=== PATIENT | male | born 1975 | race Caucasian/White ===

== ENCOUNTER 2019-04-04 05:52 | Outpatient (CLI) | payer BC ==
[~2019-04-04] VITALS: Ht 182.9 cm; Wt 87.7 kg
[~2019-04-04 05:52] MED LIST: CYCL10TA9 PO; IBP800T PO; MULT-608 PO
[2019-04-04] MEDS ORDERED: LORA10TA76 PO (10:41)
[2019-04-04] MEDS ORDERED: MULT1TAB69 PO (10:41)
[2019-04-04] MEDS ORDERED: ENAL10TA PO (10:41)
[2019-04-04] MEDS ORDERED: PRAV80TA2 PO (10:41)
--- NOTE | 2019-04-05 08:57 | HISTORY AND PHYSICAL ---
DATE OF SERVICE: 04/04/2019 COLONOSCOPY HISTORY AND PHYSICAL HISTORY: The patient is a 43-year-old white male with a strong family history for colon cancer. His dad underwent a resection at the age of 56 and underwent resection for colon cancer at the age of 56. He is not aware of any other family history for colon cancer. He has had some occasional bright red blood per rectum. Minimal volume that attributed to hemorrhoids, but it has been sometime since his last episode. He reports he is playing with his weight. He has not been exercising as much since his rowing machine broke and then slowly attributes a 7-pound weight gain. He has had no melena or recent bright red blood per rectum. Denies bowel habit change. He has had no abdominal distention and denies heartburn or dysphagia. PHYSICAL EXAMINATION: GENERAL: Reveals a white male, somewhat anxious, but in no acute distress. VITAL SIGNS: Weight 193.4 pounds, blood pressure 120/90. CHEST: Clear. CARDIOVASCULAR: Regular rate and rhythm without murmur, S3 or S4. ABDOMEN: Soft, supple without mass, organomegaly or tenderness. EXTREMITIES: Reveal no cyanosis, clubbing or edema. SKIN: Evaluation revealed no suspicious nevi. ASSESSMENT AND PLAN: 1. Hypertension. Blood pressure mildly elevated. We will see how he does under sedation during colonoscopy as it is borderline and did not any changes except for recommendations for getting and the rowing machine is what he prefers and getting back to a regular exercise 30 minutes 5 days a week is being admitted and treatment recommendation. 2. Hyperlipidemia has been stable. No history of vascular disease. 3. Family history of colon cancer. The procedure was discussed prep instructions were given and his schedule and call back with a day for the procedure in the next month. He received a flu shot again at work per his report. Job ID: [id number] DocumentID: [id number] Dictated Date: 03/27/2019 17:07:37 Breeder Service Technician Date: 03/27/2019 17:44:29 Dictated By: BOBBY SAUCEDA MD
== END 2019-04-04 10:42 | disposition home or self-care (01) ==
LOC: PREOP 05:52
PROVIDERS: ATTEND Internal Medicine
DX: Z01.818 Encounter for other preprocedural examination (principal)

== ENCOUNTER 2019-04-05 09:27 | Day surgery (SDC) | payer BC, OTHER ==
[2019-04-05] VITALS (13 sets, daily range): BP systolic 121–146; BP diastolic 77–97
[~2019-04-05] VITALS: Ht 182.9 cm; Wt 87.7 kg
--- NOTE | 2019-04-05 08:57 | HISTORY AND PHYSICAL ---
DATE OF SERVICE: 04/04/2019 COLONOSCOPY HISTORY AND PHYSICAL HISTORY: The patient is a 43-year-old white male with a strong family history for colon cancer. His dad underwent a resection at the age of 56 and underwent resection for colon cancer at the age of 56. He is not aware of any other family history for colon cancer. He has had some occasional bright red blood per rectum. Minimal volume that attributed to hemorrhoids, but it has been sometime since his last episode. He reports he is playing with his weight. He has not been exercising as much since his rowing machine broke and then slowly attributes a 7-pound weight gain. He has had no melena or recent bright red blood per rectum. Denies bowel habit change. He has had no abdominal distention and denies heartburn or dysphagia. PHYSICAL EXAMINATION: GENERAL: Reveals a white male, somewhat anxious, but in no acute distress. VITAL SIGNS: Weight 193.4 pounds, blood pressure 120/90. CHEST: Clear. CARDIOVASCULAR: Regular rate and rhythm without murmur, S3 or S4. ABDOMEN: Soft, supple without mass, organomegaly or tenderness. EXTREMITIES: Reveal no cyanosis, clubbing or edema. SKIN: Evaluation revealed no suspicious nevi. ASSESSMENT AND PLAN: 1. Hypertension. Blood pressure mildly elevated. We will see how he does under sedation during colonoscopy as it is borderline and did not any changes except for recommendations for getting and the rowing machine is what he prefers and getting back to a regular exercise 30 minutes 5 days a week is being admitted and treatment recommendation. 2. Hyperlipidemia has been stable. No history of vascular disease. 3. Family history of colon cancer. The procedure was discussed prep instructions were given and his schedule and call back with a day for the procedure in the next month. He received a flu shot again at work per his report. Job ID: [id number] DocumentID: [id number] Dictated Date: 03/27/2019 17:07:37 Barrel Reamer Date: 03/27/2019 17:44:29 Dictated By: BOBBY SAUCEDA MD
[~2019-04-05 09:27] MED LIST changes: +ENAL10TA PO; +LORA10TA76 PO; +MULT1TAB69 PO; +PRAV80TA2 PO
[2019-04-05] MEDS ORDERED: D5 LR IV SOLUTION 1,000 ML IV STA (09:34)
[2019-04-05] MEDS ORDERED: D5 LR IV SOLUTION 1,000 ML IV ONE (09:39)
--- NOTE | 2019-04-05 09:40 | Pre-Op Note & Conscious Sedat ---
Pre-Operative Progress Note H&P Reviewed The H&P was reviewed, patient examined and no changes noted. Date H&P Reviewed: Apr 05, 2019 Time H&P Reviewed: 09:39 Conscious Sedation Pre-Proced ASA Score 2 For ASA 3 and 4: Consider anesthesia and medical clearance. Also, for patients with a history of failed moderate sedation consider anesthesia. Airway Lungs Heart ASA score ASA 1: a normal healthy patient ASA 2: a patient with a mild systemic disease (mid diabetes, controlled hypertension, obesity ASA 3: a patient with a severe systemic disease that limits activity (angina, COPD, prior Myocardial infarction) ASA 4: a patient with an incapacitating disease that is a constant threat to life (CHF, renal failure) ASA 5: a moribund patient not expected to survive 24 hrs. (ruptured aneurysm) ASA 6: a declared brain- patient whose organs are being harvested. For emergent operations, add the letter E after the classification Mallampati Classification Grade 2 Sedation Plan Analgesia, Amnesia, Plan communicated to team members, Discussed options with patient/fam, Discussed risks with patient/fam The patient is an appropriate candidate to undergo the planned procedure, sedation, and anesthesia. The patient immediately re-assessed prior to indication. BOBBY SAUCEDA MD Apr 05, 2019 09:40 POS
[2019-04-05] MEDS ORDERED: LIDOCAINE JELLY 2% 6 ML SYRINGE MM PRN (09:45)
[2019-04-05] MEDS ORDERED: fentaNYL INJECTION 100 MCG/2 ML AMP IVP ONE (09:45)
[2019-04-05] MEDS ORDERED: LIDOCAINE JELLY 2% 6 ML SYRINGE ONE (10:01)
[2019-04-05] MEDS ORDERED: MIDAZOLAM 5 MG/5 ML (VERSED) VIAL ONE (10:02)
[2019-04-05] MEDS ORDERED: fentaNYL INJECTION 100 MCG/2 ML AMP ONE ×2 (10:02)
[2019-04-05] MEDS: MIDAZOLAM 5 MG/5 ML (VERSED) VIAL IV PRN ×3 (10:19→10:31)
--- NOTE | 2019-04-05 14:53 | OPERATIVE REPORT ---
DATE OF SERVICE: 04/05/2019 COLONOSCOPY SUMMARY PRIMARY CARE PHYSICIAN: Bobby Sauceda MD INDICATION FOR THE PROCEDURE: Screening colonoscopy. Family history of colon cancer. DESCRIPTION OF PROCEDURE: The patient was placed in the left lateral decubitus position. Prior to undergoing colonoscopy, digital rectal evaluation was performed. Anal sphincter tone was normal and the perianal reflex is intact. Prostate is normal in size, anodular, nontender on digital inspection. No abnormalities, no digital inspection of the anal canal or distal rectal vault. The colonoscope was then inserted into the rectum and under direct visualization advanced to the cecum. The cecum was identified by identification of the ileocecal valve and cecal strap. Photographic documentation was obtained. Careful inspection was made as the colonoscope was withdrawn. The patient tolerated the procedure well. FINDINGS: There was no evidence for external hemorrhoids. There is a small internal hemorrhoid, complex noted at the 4 o'clock to 5 o'clock position, nonthrombosed. The rectum was unremarkable. Present at the rectosigmoid junction was a diminutive 3 to 4 mm sessile polyp. It was photographed and biopsied and ablated and submitted for histopathology. There was minimal blood loss. The sigmoid colon, descending colon, splenic flexure, transverse colon, hepatic flexure, ascending colon and cecum were unremarkable. No evidence for diverticular disease was noted. DIAGNOSES: 1. One diminutive polyp was removed from the rectosigmoid junction via hot forceps. 2. One grade I internal hemorrhoid complex was noted at the 4-5 o'clock position. This was otherwise normal colonoscopy to the cecum including digital evaluation of the prostate. Considering family history, we will likely be advocating no longer than a 5-year surveillance interval. Job ID: [id number] DocumentID: [id number] Dictated Date: 04/05/2019 11:26:17 Parts Technician Date: 04/05/2019 14:52:41 Dictated By: BOBBY SAUCEDA MD [facility]
== END 2019-04-05 11:40 | disposition home or self-care (01) ==
LOC: ENDO 09:27
PROVIDERS: ATTEND Internal Medicine
DX: Z12.11 Encounter for screening for malignant neoplasm of colon (principal); K63.5 Polyp of colon; K64.0 First degree hemorrhoids; I10 Essential (primary) hypertension; E78.5 Hyperlipidemia, unspecified; Z80.0 Family history of malignant neoplasm of digestive organs
CPT/HCPCS: 88305

== ENCOUNTER → 2020-08-14 | Outpatient (CLI) | payer SELFPAY ==
[~2020-08-14] MED LIST changes: -ENAL10TA PO; +ENAL10TA16 PO; +MULT-567 PO; -MULT1TAB69 PO
--- NOTE | 2020-08-14 10:32 | Diagnostic Imaging Report ---
EXAMINATION: CT calcium scoring without contrast. TECHNIQUE: Multiple contiguous axial images were obtained through the chest without the use of intravenous contrast for purposes of calcium scoring. All CT scans use one or more of the following dose optimizing techniques: automated exposure control, MA and/or KvP adjustment based on a patient size and exam type, or iterative reconstruction. HISTORY: Hypertension. COMPARISON: None available. FINDINGS: The calculated coronary artery calcium score is zero. There is no edema or pneumonia. No pleural effusion. No pneumothorax. No suspicious nodules. Heart size is normal. No pericardial effusion. Aorta is normal in caliber. There is no axillary or supraclavicular lymphadenopathy. There is no mediastinal lymphadenopathy. Limited views of the upper abdomen are unremarkable. There are no suspicious osseous lesions. IMPRESSION: 1. Calculated coronary artery calcium score of zero. Dictated by: Dictated on workstation # [id number]
== END ==
LOC: RAD FS 09:36
PROVIDERS: ATTEND Internal Medicine
DX: I10 Essential (primary) hypertension (principal)
CPT/HCPCS: 75571

== ENCOUNTER → 2021-11-05 | Outpatient (CLI) | payer OTHER ==
--- NOTE | 2021-11-05 12:49 | Diagnostic Imaging Report ---
CLINICAL INDICATION: Patient has a spot in vision at the beginning of the week and passed out and threw up. Possible vagal response. EXAM: Axial CT scan of the brain performed without IV contrast. Auto Exposure Controls were utilized during the CT exam to meet ALARA standards for radiation dose reduction. COMPARISON: None. FINDINGS: There is no evidence of acute cerebral infarct, intracranial hemorrhage, or gross mass effect. The brain parenchymal volume appears appropriate for patient's age. There is normal garland-white matter distinction. There is no significant midline shift or herniation. There is no evidence of hydrocephalus. The basal cisterns are unremarkable. The skull, extracranial soft tissue, and orbits are unremarkable. The paranasal sinuses are unremarkable. Temporal bones show no significant abnormality. IMPRESSION: Unremarkable CT scan of the brain. Dictated by: Dictated on workstation # [id number]
== END ==
LOC: RAD 11:46
PROVIDERS: ATTEND Internal Medicine
DX: R51.9 Headache, unspecified (principal); I10 Essential (primary) hypertension
CPT/HCPCS: 70450

== ENCOUNTER 2022-07-22 05:56 | Emergency (ER) | payer OTHER ==
[~2022-07-22] VITALS: Ht 183 cm; Wt 97.5 kg
[2022-07-22] MEDS ORDERED: LACTATED RINGERS 1,000 ML IV ONE (06:30)
[2022-07-22] MEDS ORDERED: ONDANSETRON 4 MG/2 ML (SDV) Z0FRAN IVP ONE (06:30)
[2022-07-22 06:52] LABS: BASOPHILS % (AUTO) 0 % (0-10); EOSINOPHILS % (AUTO) 0 % (0-10); HEMATOCRIT 47 % (40-54); LYMPHOCYTES # (AUTO) 1.7 10^3/uL (1.0-4.0); LYMPHOCYTES % (AUTO) 14 % (12-44); MEAN CORPUSCULAR HEMOGLOBIN 32 pg (25-34); MEAN CORPUSCULAR HGB CONC 34 g/dL (32-36); MEAN CORPUSCULAR VOLUME 94 fL (80-99); MEAN PLATELET VOLUME 10.8 fL (9.0-12.2); MONOCYTES # (AUTO) 0.7 10^3/uL (0.0-1.0); MONOCYTES % (AUTO) 6 % (0-12); NEUTROPHILS # (AUTO) 9.8 10^3/uL (1.8-7.8); NEUTROPHILS % (AUTO) 80 % (42-75); PLATELET COUNT 327 10^3/uL (130-400); WHITE BLOOD COUNT 12.2 10^3/uL (4.3-11.0)
--- NOTE | 2022-07-22 06:57 | ED Abdominal Pain ---
General Chief Complaint: Abdominal/GI Problems Stated Complaint: VOMITING,FEVER Nursing Triage Note: PT AMB TO RM 5 W C/O FEVER AND VOMITING SX 07/20/22, PT REPORTS HE'S NOW EXPERIENCING DIZZINESS WHEN STANDING AND WEAKNESS. STATES HE BELIEVES HE MIGHT HAVE FOOD POISIONING FROM [employer] [place]. PT A&OX4, DENIES PAIN. Source of Information: Patient, Family, Old Records (MAYDA LOPEZ) History of Present Illness Date Seen by Provider: Jul 22, 2022 Time Seen by Provider: 06:19 Initial Comments Mr. Bedoya is a 47 yo m with PMH of HTN and HLD who presents to the ED with 3 day hx of N/V/F/C with diffuse non-radiating, achy 3/10 epigastric pain that comes and goes and is relieved by vomiting and worsened by eating or drinking. Pt reports having similar episodes which he blames on bad food but resolve spontaneously, this time he has noted increasing weakness and leg cramps which he attributes to inability to keep food or liquids down, prompting his visit to the ED this morning. He also states that he has also become increasingly selective about his food choices in order to prevent similar adverse reactions. His is at bedside and states that it is unusual for him, stating that he typically does not have many complaints of illness or take time off to seek medical care. Pt denies hematemisis, states the vomit is clear or nothing at all, denies diarrhea or changes in bowl habits. Last BM was Monday with flatus this AM. He also notes his urine has become darker and smelly, but denies hematuria or dysuria. Denies changes in vision, endorses feeling dizzy. He had a colonoscopy 3ys ago with one small polyp, no EGD. Timing/Duration: 2-3 Days Severity/Quality: Moderate, Aching, Cramping Location: Epigastric, Generalized Abdomen Radiation: No Radiation Modifying Factors: Worsens With Eating; Improves With Vomiting Associated Symptoms: Fever/Chills, Nausea/Vomiting, Weakness, Other (leg cramps) (MAYDA LOPEZ) Allergies and Home Medications Allergies Coded Allergies: atorvastatin (Verified Allergy, Unknown, 04/04/19) doxycycline (Verified Allergy, Unknown, 04/05/19) oxycodone (Verified Allergy, Unknown, 04/04/19) terfenadine (Verified Allergy, Unknown, 04/04/19) Patient Home Medication List Home Medication List Reviewed: Yes (WOLFGANG WORLEY MD) Enalapril Maleate (Enalapril Maleate) 10 Mg Tablet, 10 MG PO DAILY, (Reported) Entered as Reported by: GIA HERNANDEZ on 04/04/19 1041 Loratadine (Claritin) 10 Mg Tablet, 10 MG PO DAILY, (Reported) Entered as Reported by: GIA HERNANDEZ on 04/04/19 1041 Multivitamin (Multivitamins) 1 Each Tablet, 1 EACH PO DAILY, (Reported) Entered as Reported by: GIA HERNANDEZ on 04/04/19 1041 Ondansetron (Ondansetron Odt) 4 Mg Tab.rapdis, 4 MG SL Q4H PRN for NAUSEA/VOMITING Prescribed by: WOLFGANG MORELAND on 07/22/22 0832 Pravastatin Sodium (Pravastatin Sodium) 80 Mg Tablet, 80 MG PO DAILY, (Reported) Entered as Reported by: GIA HERNANDEZ on 04/04/19 1041 Review of Systems Review of Systems Constitutional: chills, dizziness, fever, malaise, weakness EENTM: No Blurred Vision, No Double Vision Respiratory: Denies Cough, Denies Shortness of Air Gastrointestinal: Abdominal Pain; Denies Diarrhea; Nausea, Vomiting Genitourinary: Denies Burning, Denies Hematuria, Denies Pain Musculoskeletal: No back pain; muscle cramps (legs) Skin: No change in color, No lesions, No pruritus, No rash Psychiatric/Neurological: Denies Anxiety, Denies Headache; Weakness Endocrine: Denies Excessive Sweating, Denies Flushing (MAYDA LOPEZ) Past Jpdkmqf-Mdftuw-Gvibje Hx Patient Social History Tobacco Use?: No Use of E-Cig and/or Vaping dev: No Substance use?: Yes Substance type: Marijuana (1 week ago) Substance frequency: Once in a while Alcohol Use?: No (MAYDA LOPEZ) Immunizations Up To Date Influenza Vaccine Up-to-Date: Yes; Up-to-Date First/Initial COVID19 Vaccinat: 2020 Second COVID19 Vaccination Gurjit: 2020 Third COVID19 Vaccination Date: 2022 COVID19 Vaccine Steam Boiler Fireman: MODERNA X3 (MAYDA LOPEZ) Seasonal Allergies Seasonal Allergies: Yes (MAYDA LOPEZ) Past Medical History Surgeries: Yes (wisdom teeth) Respiratory: No Cardiac: Yes High Cholesterol, Hypertension Neurological: No Genitourinary: No Gastrointestinal: No Musculoskeletal: No Endocrine: No HEENT: No Cancer: No Psychosocial: No Integumentary: No Blood Disorders: No (MAYDA LOPEZ) Physical Exam Vital Signs Vital Signs - First Documented 07/22/22 06:06 Temp 37.0 Pulse 77 Resp 20 B/P (MAP) 148/89 (108) Pulse Ox 97 O2 Delivery Room Air (WOLFGANG WORLEY MD) Vital Signs Capillary Refill : Less Than 3 Seconds (MAYDA LOPEZ) Height/Weight/BMI Height: '" Weight: lbs. oz. kg; 29.00 BMI Method:Stated General Appearance: WD/WN, no apparent distress HEENT: PERRL/EOMI Neck: full range of motion, supple Respiratory: lungs clear, normal breath sounds, no respiratory distress Cardiovascular: regular rate, rhythm, no edema Gastrointestinal: normal bowel sounds, non tender, soft, no organomegaly, no pulsatile mass; No hernia; other (- Richland sign, - McBurnneys pt tenderness, - Psoas sign) Extremities: non-tender, no pedal edema Back: no CVA tenderness Skin: normal color, warm/dry Lymphatic: no adenopathy (MAYDA LOPEZ) Progress/Results/Core Measures Results/Orders Lab Results Laboratory Tests Test 07/22/22 06:35 07/22/22 07:36 Range/Units White Blood Count 12.2 H 4.3-11.0 10^3/uL Red Blood Count 4.98 4.30-5.52 10^6/uL Hemoglobin 16.0 13.3-17.7 g/dL Hematocrit 47 40-54 % Mean Corpuscular Volume 94 80-99 fL Mean Corpuscular Hemoglobin 32 25-34 pg Mean Corpuscular Hemoglobin Concent 34 32-36 g/dL Red Cell Distribution Width 11.9 10.0-14.5 % Platelet Count 327 130-400 10^3/uL Mean Platelet Volume 10.8 9.0-12.2 fL Immature Granulocyte % (Auto) 0 % Neutrophils (%) (Auto) 80 H 42-75 % Lymphocytes (%) (Auto) 14 12-44 % Monocytes (%) (Auto) 6 0-12 % Eosinophils (%) (Auto) 0 0-10 % Basophils (%) (Auto) 0 0-10 % Neutrophils # (Auto) 9.8 H 1.8-7.8 10^3/uL Lymphocytes # (Auto) 1.7 1.0-4.0 10^3/uL Monocytes # (Auto) 0.7 0.0-1.0 10^3/uL Eosinophils # (Auto) 0.0 0.0-0.3 10^3/uL Basophils # (Auto) 0.0 0.0-0.1 10^3/uL Immature Granulocyte # (Auto) 0.0 0.0-0.1 10^3/uL Sodium Level 138 135-145 MMOL/L Potassium Level 3.4 L 3.6-5.0 MMOL/L Chloride Level 105 98-107 MMOL/L Carbon Dioxide Level 20 L 21-32 MMOL/L Anion Gap 13 5-14 MMOL/L Blood Urea Nitrogen 19 H 7-18 MG/DL Creatinine 0.86 0.60-1.30 MG/DL Estimat Glomerular Filtration Rate 107 BUN/Creatinine Ratio 22 Glucose Level 120 H 70-105 MG/DL Calcium Level 9.6 8.5-10.1 MG/DL Corrected Calcium 8.5-10.1 MG/DL Magnesium Level 2.1 1.6-2.4 MG/DL Total Bilirubin 0.5 0.1-1.0 MG/DL Aspartate Amino Transf (AST/SGOT) 22 5-34 U/L Alanine Aminotransferase (ALT/SGPT) 24 0-55 U/L Alkaline Phosphatase 63 40-136 U/L C-Reactive Protein High Sensitivity 0.12 0.00-0.50 MG/DL Total Protein 7.7 6.4-8.2 GM/DL Albumin 4.6 H 3.2-4.5 GM/DL Lipase 76 8-78 U/L Urine Color YELLOW Urine Clarity CLEAR Urine pH 6.0 5-9 Urine Specific Sulphur 1.025 H 1.016-1.022 Urine Protein 1+ H NEGATIVE Urine Glucose (UA) NEGATIVE NEGATIVE Urine Ketones 2+ H NEGATIVE Urine Nitrite NEGATIVE NEGATIVE Urine Bilirubin 1+ H NEGATIVE Urine Urobilinogen 0.2 < = 1.0 MG/DL Urine Leukocyte Esterase NEGATIVE NEGATIVE Urine RBC (Auto) TRACE-I H NEGATIVE Urine RBC RARE /HPF Urine WBC NONE /HPF Urine Squamous Epithelial Cells 0-2 /HPF Urine Crystals NONE /LPF Urine Bacteria NEGATIVE /HPF Urine Casts NONE /LPF Urine Mucus SMALL H /LPF Urine Culture Indicated NO (WOLFGANG WORLEY MD) My Orders Orders - WOLFGANG WORLEY MD Ondansetron Injection (Zofran Injectio (07/22/22 06:30) Ed Iv/Invasive Line Start (07/22/22 06:26) Lactated Ringers (Lr 1000 Ml Iv Solution (07/22/22 06:30) Cbc With Automated Diff (07/22/22 06:37) Comprehensive Metabolic Panel (07/22/22 06:37) Lipase (07/22/22 06:37) Magnesium (07/22/22 06:37) Ua Culture If Indicated (07/22/22 06:37) Hs C Reactive Protein (07/22/22 07:16) (WOLFGANG WORLEY MD) Medications Given in ED (WOLFGANG WORLEY MD) Vital Signs/I&O 07/22/22 07/22/22 06:06 08:58 Temp 37.0 37.0 Pulse 77 77 Resp 20 20 B/P (MAP) 148/89 (108) 148/89 Pulse Ox 97 97 O2 Delivery Room Air Room Air (WOLFGANG WORLEY MD) Blood Pressure Mean: 108 Progress Progress Note : Progress Note Patient was interviewed and examined by me along with MS 4. By the time of my exam his abdominal tenderness was resolved and he had no more nausea. He was able to tolerate clear liquids. He had been treated with a liter of LR and Zofran. Labs were reviewed including CBC, CMP, magnesium, and lipase. Urinalysis was also reviewed. There is minimal leukocytosis and minimal hypokalemia. No abnormalities that required further treatment or found. See discharge instructions for further discussion. (WOLFGANG WORLEY MD) Departure Impression Primary Impression: Nausea vomiting and diarrhea Disposition: 01 HOME, SELF-CARE Condition: Improved Departure-Patient Inst. Decision time for Depature: 08:30 (WOLFGANG WORLEY MD) Referrals: BOBBY SAUCEDA MD (PCP/Family) Primary Care Physician Patient Instructions: Nausea and Vomiting, Adult Add. Discharge Instructions: Your symptoms were likely caused by a viral gastroenteritis. Start with a clear liquid diet and gradually advance your diet with small quantities of bland food as tolerated. Avoid dairy products and fatty or greasy foods for the next few days. Sip on clear liquids throughout the day to stay well-hydrated. Use Zofran (ondansetron) as prescribed for any further nausea or vomiting. You may use Tylenol (acetaminophen) up to 1000 mg every 6 hours as needed for pain. Avoid NSAID medications such as ibuprofen or naproxen for the next few days as they may cause further stomach irritation. If you have upper abdominal pain, you may use imkm-lwh-kvanizs antiacid medications such as Pepcid (famotidine), Prilosec (omeprazole), Tums, etc. Return to care if you have worsening symptoms despite following these instruct ions. All discharge instructions reviewed with patient and/or family. Voiced understanding. Scripts Ondansetron (Ondansetron Odt) 4 Mg Tab.rapdis 4 MG SL Q4H PRN for NAUSEA/VOMITING, #10 TAB Prov: WOLFGANG WORLEY MD 07/22/22 Work/School Note: Work Release Form Date Seen in the Emergency Department: Jul 22, 2022 Return to Work: Jul 23, 2022 Restrictions: Return-No Fever (24hrs), Return-No Vomiting(24hrs) Medical Student Attestation and Attending Note: I have personally interviewed and examined this patient along with Mayda Lopez, MS4. I have reviewed student documentation including history, physical, and assessments. I agree with the documentation except where otherwise noted. Exam: General: Alert, oriented, no acute distress, well developed HEENT: Normocephalic and atraumatic, MMM Heart: Regular rate and rhythm without murmur Lungs: Clear to auscultation bilaterally with normal effort Abdomen: Soft, nontender, nondistended, normal bowel sounds Neuropsych: Alert, oriented, no focal deficits Skin: Warm and dry without rashes (WOLFGANG WORLEY MD) MAYDA LOPEZ Jul 22, 2022 06:57 WOLFGANG WORLEY MD Jul 22, 2022 08:33
[2022-07-22 06:58] LABS: ALBUMIN 4.6 GM/DL (3.2-4.5)
[2022-07-22 06:59] LABS: CHLORIDE 105 MMOL/L (98-107); POTASSIUM 3.4 MMOL/L (3.6-5.0); SODIUM 138 MMOL/L (135-145)
[2022-07-22 07:00] LABS: CALCIUM 9.6 MG/DL (8.5-10.1)
[2022-07-22 07:01] LABS: GLUCOSE 120 MG/DL (70-105); TOTAL PROTEIN 7.7 GM/DL (6.4-8.2)
[2022-07-22 07:02] LABS: CARBON DIOXIDE 20 MMOL/L (21-32)
[2022-07-22 07:03] LABS: BILIRUBIN,TOTAL 0.5 MG/DL (0.1-1.0)
[2022-07-22 07:04] LABS: ALKALINE PHOSPHATASE 63 U/L (40-136)
[2022-07-22 07:05] LABS: CREATININE SERUM 0.86 MG/DL (0.60-1.30); GFR ESTIMATED 107
[2022-07-22 07:06] LABS: BUN/CREATININE RATIO 22
[2022-07-22 07:07] LABS: MAGNESIUM 2.1 MG/DL (1.6-2.4)
[2022-07-22 07:08] LABS: ALANINE AMINOTRANSFERASE 24 U/L (0-55); LIPASE 76 U/L (8-78)
[2022-07-22 07:44] LABS: CLARITY,URINE CLEAR; COLOR,URINE YELLOW; GLUCOSE, URINE (UA) NEGATIVE (NEGATIVE); KETONES,URINE 2+ (NEGATIVE); LEUKOCYTE ESTERASE ,URINE NEGATIVE (NEGATIVE); NITRITE,URINE NEGATIVE (NEGATIVE); PROTEIN,URINE 1+ (NEGATIVE)
[2022-07-22 07:56] LABS: BACTERIA,URINE NEGATIVE /HPF; RBC,URINE RARE /HPF; SQUAMOUS EPITHELIAL CELL,UR 0-2 /HPF
[2022-07-22 07:57] LABS: BILIRUBIN,URINE 1+ (NEGATIVE)
[2022-07-22] MEDS ORDERED: ONDA4TAB11 SL (08:32)
[2022-07-22 08:58] VITALS: BP 148/89
== END 2022-07-22 08:59 | disposition home or self-care (01) ==
LOC: EDUNIT# 05:56 → ER 05:59
DX: R11.2 Nausea with vomiting, unspecified (principal); R19.7 Diarrhea, unspecified; I10 Essential (primary) hypertension; D72.829 Elevated white blood cell count, unspecified; E87.6 Hypokalemia
CPT/HCPCS: 36415; 80053; 81000; 83690; 83735; 85025; 86141